=== PATIENT | female | born 1955 | race Two or more races ===

== ENCOUNTER 2021-02-20 13:45 | Inpatient (IN) ==
[2021-02-20 14:08] VITALS: BMI 24.7
--- NOTE | 2021-02-20 14:42 | DR.GENAD ---
HPI Time Seen Time Seen by Provider: 02/20/21 14:38 PCP Primary Care Physician: EVERTON Complaint/Symptoms Chief Complaint:: PT C/O ONE WEEK HISTORY OF GENERALIZED WEAKNESS, DIZZINESS, NAUSEA, VOMITING, DIARRHEA. COVID-19 Has patient experienced Coronavirus symptoms: Yes Coronavirus symptoms experienced: Fever, Coughing and Shortness of Breath Source History Provided: Patient Mode of Arrival Mode of Arrival: Ambulatory Timing Onset of Chief Complaint: 02/20/21 PMH PMH Past Medical History: No Past Surgical History: No Family History History of Family Medical Conditions: No Social History Does patient currently use any type of tobacco product: No Have you used tobacco products in the last 12 months: No Type of Tobacco Use: None Does any household member use tobacco: No Alcohol Use: None Do you use any recreational Drugs:: No Lives With: Alone Lives Where: Home Travel Risk Has patient experienced Coronavirus symptoms: Yes Coronavirus symptoms experienced: Fever, Coughing and Shortness of Breath Infectious screening In the last 2 months have you had wt loss of >10#?: NO Have you had fever, night sweats or hemotysis?: No Have you traveled outside the country in the last 6 months?: No Isolation: Droplet PE Vital Signs Vitals: Temperature 97.8 F Pulse Rate 99 Respiratory Rate 20 Blood Pressure 125/66 O2 Sat by Pulse Oximetry 85 ROR Labs Reviewed Result Diagrams: 02/20/21 14:54 02/20/21 14:54 Laboratory: WBC 7.3 X10^3/uL (3.6-10.0) 02/20/21 14:54 RBC 4.42 X10^6/uL (3.5-5.4) 02/20/21 14:54 Hgb 13.1 g/dL (12.0-16.0) 02/20/21 14:54 Hct 37.9 % (36.0-47.0) 02/20/21 14:54 MCV 85.7 fL (80.0-100.0) 02/20/21 14:54 MCH 29.7 pg (27.0-34.0) 02/20/21 14:54 MCHC 34.6 g/dL (33.0-35.0) 02/20/21 14:54 RDW 12.3 % (11.6-16.5) 02/20/21 14:54 Plt Count 289 X10^3/uL (150.0-450.0) 02/20/21 14:54 MPV 8.3 fL (7.4-11.0) 02/20/21 14:54 Neut % (Auto) 77.5 % (42.0-75.0) H 02/20/21 14:54 Lymph % (Auto) 18.0 % (21.0-51.0) L 02/20/21 14:54 [place] % (Auto) 3.6 % (0.0-13.0) 02/20/21 14:54 Eos % (Auto) 0.2 % (0.9-2.9) L 02/20/21 14:54 Baso % (Auto) 0.7 % (0.2-1.0) 02/20/21 14:54 Neut # (Auto) 5.6 x10^3/uL (2.2-4.8) H 02/20/21 14:54 Lymph # (Auto) 1.3 X10^3/uL (1.3-2.9) 02/20/21 14:54 [place] # (Auto) 0.3 x10^3/uL (0.3-0.8) 02/20/21 14:54 Eos # (Auto) 0.0 x10^3/uL (0.0-0.2) 02/20/21 14:54 Baso # (Auto) 0.0 X10^3/uL (0.0-0.1) 02/20/21 14:54 Absolute Nucleated RBC 0.1 /100WBC 02/20/21 14:54 Sample Site Lra 02/20/21 15:23 ABG pH 7.510 (7.35-7.45) H 02/20/21 15:23 ABG pCO2 32.0 mmHg (35.0-45.0) L 02/20/21 15:23 ABG pO2 51.0 mmHg (80.0-100.0) L 02/20/21 15:23 ABG HCO3 25.5 mmol/L (22-26) 02/20/21 15:23 ABG O2 Saturation 89.0 % (90-100) L 02/20/21 15:23 ABG Base Excess 2.9 mmol/L (-2.0-2.0) H 02/20/21 15:23 Sky Test Pos 02/20/21 15:23 A-a Gradient 59.0 mmHg 02/20/21 15:23 FiO2 21.0 02/20/21 15:23 Blood Gas Comments Pt judah well eb 02/20/21 15:23 Sodium 142 mmol/L (136-145) 02/20/21 14:54 Corrected Sodium 142 mmol/L (136-145) 02/20/21 14:54 Potassium 3.4 mmol/L (3.5-5.1) L 02/20/21 14:54 Chloride 106 mmol/L (98-107) 02/20/21 14:54 Carbon Dioxide 25.2 mmol/L (21-32) 02/20/21 14:54 BUN 12 mg/dL (7-18) 02/20/21 14:54 Creatinine 0.77 mg/dL (0.55-1.02) 02/20/21 14:54 Est GFR (MDRD) Af Amer > 60 (>60) 02/20/21 14:54 Est GFR (MDRD) Non-Af > 60 (>60) 02/20/21 14:54 Glucose 113 mg/dL (65-99) H 02/20/21 14:54 Calcium 8.0 mg/dL (8.5-10.1) L 02/20/21 14:54 Corrected Calcium 9.1 mg/dL (8.5-10.1) 02/20/21 14:54 Total Bilirubin 0.70 mg/dL (0.2-1.0) 02/20/21 14:54 AST 74 Units/L (15-37) H 02/20/21 14:54 ALT 59 Units/L (12-78) 02/20/21 14:54 Alkaline Phosphatase 111 Units/L (46-116) 02/20/21 14:54 B-Natriuretic Peptide 9.7 pg/mL (0-79) 02/20/21 14:54 Total Protein 7.5 g/dL (6.4-8.2) 02/20/21 14:54 Albumin 2.6 g/dL (3.4-5.0) L 02/20/21 14:54 Globulin 4.9 g/dL (2.5-4.5) H 02/20/21 14:54 Albumin/Globulin Ratio 0.5 Ratio (1.1-2.1) L 02/20/21 14:54 Amylase 65 Units/L (25-115) 02/20/21 14:54 Lipase 189 Units/L (73-393) 02/20/21 14:54 SARS-CoV-2 (PCR) Positive (NEGATIVE) A 02/20/21 15:05 Influenza Type A (PCR) Negative (NEGATIVE) 02/20/21 15:05 Influenza Type B (PCR) Negative (NEGATIVE) 02/20/21 15:05 RSV (PCR) Negative (NEGATIVE) 02/20/21 15:05 S. pyogenes (TEM-PCR) Not detected (NOT DETECT) 02/20/21 15:05 Opioid Opioid Risk Tool Age (Randolph box if 16-45): No History of Preadolescent Sexual Abuse: No Total: 0 Total Score Risk Category: Low Risk Copyright: Dez CALLES predicting aberrant behaviors Instructions Forms: Precautions for COVID19 Patient Portal Social Distancing
[2021-02-20] MEDS ORDERED: NS 1000 ML 1,000 ML ONE ×3 (14:59→16:33)
[2021-02-20 15:08] LABS: BASOPHILS % (AUTO) 0.7 % (0.2-1.0); EOSINOPHILS % (AUTO) 0.2 % (0.9-2.9); HEMATOCRIT 37.9 % (36.0-47.0); HEMOGLOBIN 13.1 g/dL (12.0-16.0); LYMPHOCYTES # (AUTO) 1.3 X10^3/uL (1.3-2.9); MEAN CORPUSCULAR HEMOGLOBIN 29.7 pg (27.0-34.0); MEAN CORPUSCULAR HGB CONC 34.6 g/dL (33.0-35.0); MEAN CORPUSCULAR VOLUME 85.7 fL (80.0-100.0); MEAN PLATELET VOLUME 8.3 fL (7.4-11.0); MONOCYTES # (AUTO) 0.3 x10^3/uL (0.3-0.8); MONOCYTES % (AUTO) 3.6 % (0.0-13.0); NEUTROPHILS # (AUTO) 5.6 x10^3/uL (2.2-4.8); NEUTROPHILS % (AUTO) 77.5 % (42.0-75.0); PLATELET COUNT 289 X10^3/uL (150.0-450.0); RED BLOOD COUNT 4.42 X10^6/uL (3.5-5.4); RED CELL DISTRIBUTION WIDTH 12.3 % (11.6-16.5); WHITE BLOOD COUNT 7.3 X10^3/uL (3.6-10.0)
[2021-02-20] MEDS: NS 1000 ML 1,000 ML IV SCH (15:10)
[2021-02-20 15:16] LABS: ALANINE AMINOTRANSFERASE 59 Units/L (12-78); ALBUMIN 2.6 g/dL (3.4-5.0); ALKALINE PHOSPHATASE 111 Units/L (46-116); AMYLASE 65 Units/L (25-115); ASPARTATE AMINO TRANSFERASE 74 Units/L (15-37); BLOOD UREA NITROGEN 12 mg/dL (7-18); CARBON DIOXIDE 25.2 mmol/L (21-32); CHLORIDE 106 mmol/L (98-107); COR CA(FOR HYPOALB) 9.1 mg/dL (8.5-10.1); COR NA(FOR HYPERGLY) 142 mmol/L (136-145); CREATININE 0.77 mg/dL (0.55-1.02); LIPASE 189 Units/L (73-393); SODIUM 142 mmol/L (136-145); TOTAL PROTEIN 7.5 g/dL (6.4-8.2); eGFR NON BLACK RACES > 60 (>60)
[2021-02-20 15:27] LABS: ABG ALLEN TEST POS; ABG BASE EXCESS 2.9 mmol/L (-2.0-2.0); ABG HCO3 25.5 mmol/L (22-26)
--- NOTE | 2021-02-20 15:30 | RAD ---
HISTORYPT C/O ONE WEEK HISTORY OF GENERALIZED WEAKNESS, DIZZINESS, NAUSEA, VOMITING, DIARRHEA.STUDYACUTE ABDOMEN SERIESCOMPARISONNone availableTECHNIQUEAP supine and upright abdominal radiographs with chest radiography, 3 images.FINDINGSGas throughout nondistended small and large bowel.No significant stool burden visualized.No gross free air.No abnormal calcifications.No acute osseous abnormality.Diffuse bilateral airspace opacities.No cardiomegaly.No pneumothorax.No pleural effusion.IMPRESSION1. Diffuse bilateral airspace opacities is concerning for multifocal pneumonia or the sequela of atypical/viral infectious process.2. No acute intra-abdominal abnormality identified.Electronically signed by: Girish Acosta (Feb 20, 2021 15:27:04)
[2021-02-20 15:41] LABS: STREP A BY PCR NOT DETECTED (NOT DETECT)
[2021-02-20] MEDS ORDERED: DECADRON INJ IV ONE (16:13)
[2021-02-20] MEDS ORDERED: ZOSYN VIAL 3.375 GRAMS 3.375 G in NS 100 ML IV + SPIKE MINIBAG* 100 ML IV ONE (16:14)
[2021-02-20] MEDS ORDERED: NS 100 ML IV + SPIKE MINIBAG* 100 ML IV ONE (16:29)
[2021-02-20] MEDS ORDERED: DECADRON INJ ONE (16:29)
[2021-02-20] MEDS ORDERED: ZOSYN VIAL 3.375 GRAMS IV ONE (16:29)
[2021-02-20] MEDS ORDERED: TORADOL 30 MG VIAL IVP ONE (17:53)
[2021-02-20] MEDS ORDERED: TORADOL 30 MG VIAL ONE (17:54)
[2021-02-20] MEDS ORDERED: TYLENOL 325 MG TAB PO ONE ×2 (18:08→18:09)
[2021-02-20] MEDS ORDERED: ZOSYN VIAL 3.375 GRAMS 3.375 G in NS 100 ML IV + SPIKE MINIBAG* 100 ML IV SCH (18:09)
[2021-02-20] MEDS ORDERED: TUSSIONEX PENNKINETIC SUSP PO PRN (18:09)
[2021-02-20] MEDS ORDERED: SOLU-Medrol 125 MG VIAL IVP ONE (19:47)
[2021-02-20] MEDS ORDERED: REMDESIVIR 200 MG in NS 250 ML IV 250 ML IV ONE (19:47)
[2021-02-20] MEDS ORDERED: BENADRYL INJ 50 MG VIAL IV ONE (19:47)
[2021-02-20] MEDS ORDERED: BENADRYL INJ 50 MG VIAL ONE (20:08)
[2021-02-20] MEDS ORDERED: SOLU-Medrol 125 MG VIAL ONE (20:08)
[2021-02-20 20:12] LABS: CKMB % 1.6 % (<4); CREATINE KINASE 61 Units/L (26-192); CREATINE KINASE MB < 1.0 ng/mL (0-4.0); TROPONIN I 0.04 ng/mL (0-1.5)
[2021-02-20] MEDS: PULMICORT NEB TX 0.5 MG NEB SCH (21:05)
[2021-02-20] MEDS ORDERED: NS 100 ML IV 100 ML ONE (21:06)
[2021-02-20] MEDS: PEPCID TAB 40 MG PO SCH (22:00)
--- NOTE | 2021-02-20 22:12 | CT ---
HISTORYpneumonia, hypoxia, covid+STUDYCTA CHESTCOMPARISONNone availableTECHNIQUEAxial CT images of the chest were obtained after the administration of 75 mL Omnipaque 350 IV contrast utilizing a CTA protocol. 3D MIPS were performed and reviewed for further evaluation.Radiation dose: 539.80 mGy-cm total DLPFINDINGSNo significant pericardial effusion.No mediastinal or hilar lymphadenopathy.Aorta is normal in caliber without dissection.Pulmonary arteries are normal in caliber without filling defects to suggest a pulmonary embolus.Nonspecific esophageal wall thickening below the level of the joaquín.Airways are widely patent.Thyroid appears normal.Small right and trace left pleural effusions.Diffuse bilateral airspace opacities throughout the majority of the lung parenchyma.No pneumothorax.No concerning lung parenchymal lesion identified.Imaged portion of the upper abdomen is unremarkable.No acute osseous abnormality.Multilevel mild degenerative disc disease without vertebral body height loss.IMPRESSION1. Diffuse bilateral airspace opacities throughout the majority of the lung parenchyma. Findings are consistent with the given history of a COVID-19 respiratory infection.2. Small right and trace left pleural effusions; may represent cardiogenic edema.3. Nonspecific esophageal wall thickening below the level of joaquín correlate for symptoms esophagitis.Electronically signed by: Girish Acosta (Feb 20, 2021 22:08:43)
[2021-02-20] MEDS: LOVENOX INJ 30 MG SYR SC SCH (22:20)
[2021-02-20] MEDS: ROBITUSSIN DM PO SCH (22:23)
[2021-02-21] MEDS ORDERED: ZOSYN VIAL 3.375 GRAMS IV ONE ×2 (00:52→10:18)
[2021-02-21] MEDS ORDERED: NS 100 ML IV + SPIKE MINIBAG* 100 ML IV ONE ×2 (00:53→10:20)
[2021-02-21] MEDS: ZOSYN VIAL 3.375 GRAMS 3.375 G in NS 100 ML IV + SPIKE MINIBAG* 100 ML IV SCH ×3 (00:57→17:25)
[2021-02-21] MEDS: ROBITUSSIN DM PO SCH ×5 (02:04→21:12)
[2021-02-21] MEDS: NS 1000 ML 1,000 ML IV SCH ×3 (02:25→18:37)
[2021-02-21 04:44] LABS: BASOPHILS % (AUTO) 0.1 % (0.2-1.0); HEMATOCRIT 38.3 % (36.0-47.0); HEMOGLOBIN 13.2 g/dL (12.0-16.0); LYMPHOCYTES # (AUTO) 0.9 X10^3/uL (1.3-2.9); LYMPHOCYTES % (AUTO) 14.5 % (21.0-51.0); MEAN CORPUSCULAR HEMOGLOBIN 29.6 pg (27.0-34.0); MEAN CORPUSCULAR HGB CONC 34.4 g/dL (33.0-35.0); MEAN CORPUSCULAR VOLUME 85.9 fL (80.0-100.0); MEAN PLATELET VOLUME 8.3 fL (7.4-11.0); MONOCYTES # (AUTO) 0.2 x10^3/uL (0.3-0.8); MONOCYTES % (AUTO) 2.7 % (0.0-13.0); NEUTROPHILS % (AUTO) 82.7 % (42.0-75.0); PLATELET COUNT 316 X10^3/uL (150.0-450.0); RED BLOOD COUNT 4.46 X10^6/uL (3.5-5.4); RED CELL DISTRIBUTION WIDTH 12.3 % (11.6-16.5); WHITE BLOOD COUNT 6.1 X10^3/uL (3.6-10.0)
[2021-02-21 04:58] LABS: ALANINE AMINOTRANSFERASE 59 Units/L (12-78); ALBUMIN 2.1 g/dL (3.4-5.0); ALKALINE PHOSPHATASE 112 Units/L (46-116); ASPARTATE AMINO TRANSFERASE 68 Units/L (15-37); BLOOD UREA NITROGEN 15 mg/dL (7-18); CALCIUM 7.7 mg/dL (8.5-10.1); CARBON DIOXIDE 24.4 mmol/L (21-32); CHLORIDE 111 mmol/L (98-107); COR CA(FOR HYPOALB) 9.2 mg/dL (8.5-10.1); COR NA(FOR HYPERGLY) 148 mmol/L (136-145); CREATININE 0.79 mg/dL (0.55-1.02); SODIUM 146 mmol/L (136-145); TOTAL PROTEIN 6.7 g/dL (6.4-8.2); eGFR NON BLACK RACES > 60 (>60)
[2021-02-21] MEDS: SOLU-Medrol 40 MG VIAL IVP SCH ×3 (05:49→21:08)
[2021-02-21 07:53] LABS: CKMB % 1.5 % (<4); CREATINE KINASE 69 Units/L (26-192); CREATINE KINASE MB < 1.0 ng/mL (0-4.0); TROPONIN I 0.02 ng/mL (0-1.5)
[2021-02-21] MEDS ORDERED: NS 1/2 1000 ML IV 1,000 ML IV ONE (08:30)
[2021-02-21] MEDS ORDERED: LOVENOX INJ 30 MG SYR SC ONE (08:50)
[2021-02-21] MEDS ORDERED: PEPCID TAB 40 MG ONE (08:50)
[2021-02-21] MEDS ORDERED: TRICOR TAB 160 MG ONE (08:50)
[2021-02-21] MEDS ORDERED: VITAMIN D3 125 mcg (5,000 UNITS) ONE (09:10)
[2021-02-21] MEDS ORDERED: NS 50 ML IV 50 ML IV ONE (09:10)
[2021-02-21] MEDS ORDERED: ASCORBIC ACID INJ MULTI-DOSE VIAL IV ONE (09:11)
[2021-02-21] MEDS ORDERED: ZINC SULFATE ONE (09:12)
[2021-02-21] MEDS: ASCORBIC ACID INJ MULTI-DOSE VIAL 1,500 MG in NS 50 ML IV 50 ML IV SCH ×4 (09:15→21:08)
[2021-02-21] MEDS ORDERED: NS 1000 ML 1,000 ML ONE (09:15)
[2021-02-21] MEDS: PEPCID TAB 40 MG PO SCH ×2 (09:23→21:10)
[2021-02-21] MEDS: ZINC SULFATE PO SCH (09:23)
[2021-02-21] MEDS: VITAMIN A PO SCH (09:24)
[2021-02-21] MEDS: TRICOR TAB 160 MG PO SCH (09:24)
[2021-02-21] MEDS: VITAMIN D3 125 mcg (5,000 UNITS) PO SCH (09:24)
[2021-02-21] MEDS: LOVENOX INJ 30 MG SYR SC SCH ×2 (09:25→21:09)
[2021-02-21] MEDS: VSL#3 PO SCH (10:05)
[2021-02-21] MEDS: PULMICORT NEB TX 0.5 MG NEB SCH ×2 (10:19→20:35)
[2021-02-21] MEDS ORDERED: REMDESIVIR IV ONE (10:59)
[2021-02-21] MEDS ORDERED: ROBITUSSIN DM ONE ×2 (10:59→13:28)
[2021-02-21] MEDS ORDERED: NS 250 ML IV 250 ML IV ONE (10:59)
[2021-02-21] MEDS: REMDESIVIR 100 MG in NS 250 ML IV 250 ML IV SCH (11:00)
[2021-02-21] MEDS ORDERED: ZITHROMAX TAB 250 MG PO ONE (11:34)
[2021-02-21] MEDS ORDERED: ACTEMRA 400 MG in NS 100 ML IV 80 ML IV SCH (11:49)
[2021-02-21] MEDS: ZITHROMAX TAB 250 MG PO SCH (12:00)
[2021-02-21 12:29] LABS: CKMB % 1.9 % (<4); CREATINE KINASE 70 Units/L (26-192); CREATINE KINASE MB 1.3 ng/mL (0-4.0); TROPONIN I < 0.02 ng/mL (0-1.5)
[2021-02-21 12:32] LABS: HEMOGLOBIN A1C 6.7 %
--- NOTE | 2021-02-21 13:05 | DR.H&P ---
H&P History & Physical for Day of: H&P Date: 02/21/21 Chief Complaint Chief Complaint: nausea, vomiting, cough Allergies Allergies Allergy/AdvReac Type Severity Reaction Status Date / Time No Known Drug Allergies Allergy Verified 02/20/21 14:09 History of Present Illness History of Present Illness: Ms Lang is a 65y.o female with no pertinent past medical hx presented with generalized weakness, nausea, vomiting and cough. Her Sx started Sunday and she went to ER in [place] Sunday. She was given some medicines and discharged but continued to get worse so she came here. She was having worsening SOB and congestion. She also has decreased oral intake. Denies prev hx of covid infection, unvaccinated. Patient is currently on HHFNC FiO2 90% and appears in no respiratory distress. Hx was obtained from the family member in the room. ER work up Labs: WBC 6.1 Hgb 13.2 Na: 146 K: 3.6 BUN/Cr: 15/0.79 trop 0.04 0.02 D-dimer 0.91 ABG 7.51/32/51/25 89% RA - COVID-19 + CTA: no PE, diffuse bilateral opacities Patient was started on IV antibiotics, solumedrol and Remdesivir. Plan: admit with covid-19 protocol. Wean O2 as tolerated to keep sats > 92%. Will give one dose Actemra as soon as it's available. Continue IV zosyn, add azithromycin. Continue Remdesivir and Solumedrol. Continue nebs, pulmicort and IS. Trend cardiac enzymes. PT/OT as tolerated. Anti-emetics prn. Continue gentle hydration. Add vitamin support. Monitor AM labs and imaging. Discussed patient's treatment plan with family. Time spent for clinical assessment, reviewing labs/imaging, physical exam, decision making and documentation greater than 75 mins. Past Medical History Past Medical History: Family History Family Medical History: Diabetes Mellitus Social History Does patient currently use any type of tobacco product: No Have you used tobacco products in the last 12 months: No Type of Tobacco Use: None Does any household member use tobacco: No Alcohol Use: None Drug Use: None Prescription drug monitoring program results: PDMP reviewed and no concerns identified Medications Home Medications: No Known Drug Allergies Allergy (Verified 02/20/21 14:09) CONTINUE taking the following medications albuterol sulfate 90 mcg INHALATION Q4HR PRN 02/20/21 [History] ascorbic acid (vitamin C) 500 mg PO BID 02/20/21 [History] wvqgpyavphwmzax-moxvgqejb-DC 5 ml PO Q6HR PRN 02/20/21 [History] cetirizine 10 mg PO DAILYHS 02/20/21 [History] cholecalciferol (vitamin D3) 125 mcg PO DAILY 02/20/21 [History] zinc sulfate 50 mg PO BID 02/20/21 [History] Labs Result Diagrams: 02/21/21 04:16 02/21/21 04:16 Labs: Laboratory WBC 6.1 X10^3/uL (3.6-10.0) 02/21/21 04:16 RBC 4.46 X10^6/uL (3.5-5.4) 02/21/21 04:16 Hgb 13.2 g/dL (12.0-16.0) 02/21/21 04:16 Hct 38.3 % (36.0-47.0) 02/21/21 04:16 MCV 85.9 fL (80.0-100.0) 02/21/21 04:16 MCH 29.6 pg (27.0-34.0) 02/21/21 04:16 MCHC 34.4 g/dL (33.0-35.0) 02/21/21 04:16 RDW 12.3 % (11.6-16.5) 02/21/21 04:16 Plt Count 316 X10^3/uL (150.0-450.0) 02/21/21 04:16 MPV 8.3 fL (7.4-11.0) 02/21/21 04:16 Neut % (Auto) 82.7 % (42.0-75.0) H 02/21/21 04:16 Lymph % (Auto) 14.5 % (21.0-51.0) L 02/21/21 04:16 [place] % (Auto) 2.7 % (0.0-13.0) 02/21/21 04:16 Eos % (Auto) 0.0 % (0.9-2.9) L 02/21/21 04:16 Baso % (Auto) 0.1 % (0.2-1.0) L 02/21/21 04:16 Neut # (Auto) 5.0 x10^3/uL (2.2-4.8) H 02/21/21 04:16 Lymph # (Auto) 0.9 X10^3/uL (1.3-2.9) L 02/21/21 04:16 [place] # (Auto) 0.2 x10^3/uL (0.3-0.8) L 02/21/21 04:16 Eos # (Auto) 0.0 x10^3/uL (0.0-0.2) 02/21/21 04:16 Baso # (Auto) 0.0 X10^3/uL (0.0-0.1) 02/21/21 04:16 Absolute Nucleated RBC 0.1 /100WBC 02/21/21 04:16 D-Dimer 0.91 ug/ml (0.0-0.57) H* 02/20/21 20:00 Sample Site Lra 02/20/21 15:23 ABG pH 7.510 (7.35-7.45) H 02/20/21 15:23 ABG pCO2 32.0 mmHg (35.0-45.0) L 02/20/21 15:23 ABG pO2 51.0 mmHg (80.0-100.0) L 02/20/21 15:23 ABG HCO3 25.5 mmol/L (22-26) 02/20/21 15:23 ABG O2 Saturation 89.0 % (90-100) L 02/20/21 15:23 ABG Base Excess 2.9 mmol/L (-2.0-2.0) H 02/20/21 15:23 Sky Test Pos 02/20/21 15:23 A-a Gradient 59.0 mmHg 02/20/21 15:23 FiO2 21.0 02/20/21 15:23 Blood Gas Comments Pt judah well eb 02/20/21 15:23 Sodium 146 mmol/L (136-145) H 02/21/21 04:16 Corrected Sodium 148 mmol/L (136-145) H 02/21/21 04:16 Potassium 3.6 mmol/L (3.5-5.1) 02/21/21 04:16 Chloride 111 mmol/L (98-107) H 02/21/21 04:16 Carbon Dioxide 24.4 mmol/L (21-32) 02/21/21 04:16 BUN 15 mg/dL (7-18) 02/21/21 04:16 Creatinine 0.79 mg/dL (0.55-1.02) 02/21/21 04:16 Est GFR (MDRD) Af Amer > 60 (>60) 02/21/21 04:16 Est GFR (MDRD) Non-Af > 60 (>60) 02/21/21 04:16 Glucose 177 mg/dL (65-99) H 02/21/21 04:16 Hemoglobin A1c 6.7 % 02/21/21 04:16 Calcium 7.7 mg/dL (8.5-10.1) L 02/21/21 04:16 Corrected Calcium 9.2 mg/dL (8.5-10.1) 02/21/21 04:16 Total Bilirubin 0.50 mg/dL (0.2-1.0) 02/21/21 04:16 AST 68 Units/L (15-37) H 02/21/21 04:16 ALT 59 Units/L (12-78) 02/21/21 04:16 Alkaline Phosphatase 112 Units/L (46-116) 02/21/21 04:16 Creatine Kinase 69 Units/L (26-192) 02/21/21 04:16 Creatine Kinase 70 Units/L (26-192) 02/21/21 04:16 CK-MB (CK-2) 1.3 ng/mL (0-4.0) 02/21/21 04:16 CK-MB (CK-2) < 1.0 ng/mL (0-4.0) 02/21/21 04:16 CK/CKMB % Calc 1.5 % (<4) 02/21/21 04:16 CK/CKMB % Calc 1.9 % (<4) 02/21/21 04:16 Troponin I 0.02 ng/mL (0-1.5) 02/21/21 04:16 Troponin I < 0.02 ng/mL (0-1.5) 02/21/21 04:16 B-Natriuretic Peptide 9.7 pg/mL (0-79) 02/20/21 14:54 Total Protein 6.7 g/dL (6.4-8.2) 02/21/21 04:16 Albumin 2.1 g/dL (3.4-5.0) L 02/21/21 04:16 Globulin 4.6 g/dL (2.5-4.5) H 02/21/21 04:16 Albumin/Globulin Ratio 0.5 Ratio (1.1-2.1) L 02/21/21 04:16 Amylase 65 Units/L (25-115) 02/20/21 14:54 Lipase 189 Units/L (73-393) 02/20/21 14:54 SARS-CoV-2 (PCR) Positive (NEGATIVE) A 02/20/21 15:05 Influenza Type A (PCR) Negative (NEGATIVE) 02/20/21 15:05 Influenza Type B (PCR) Negative (NEGATIVE) 02/20/21 15:05 RSV (PCR) Negative (NEGATIVE) 02/20/21 15:05 S. pyogenes (TEM-PCR) Not detected (NOT DETECT) 02/20/21 15:05 Review of Systems Constitutional: Fever, Weakness and Malaise Eyes: No Symptoms Reported ENT: No Symptoms Reported Respiratory: Cough, Shortness of Breath and SOB with Excertion Cardiovascular: No Symptoms Reported Gastrointestinal: Nausea and Vomiting Genitourinary: No Symptoms Reported Musculoskeletal: No Symptoms Reported Skin: No Symptoms Reported Neurological: No Symptoms Reported Physical Exam Vital Signs: Temperature 97.7 F Pulse Rate [Bilateral] 84 Pulse Rate 98 Respiratory Rate 24 Blood Pressure [Left Arm] 143/77 Blood Pressure 125/66 O2 Sat by Pulse Oximetry 96 Oriented: Normal Eyes: Normal Ear: Normal Nose: Normal Throat: Normal Respiratory: Rhonchi Throughout and Wheezes Throughout Cardiovascular: Normal Auscultation: Bowel Sounds: Normal Palpation: Normal Tenderness: Normal Skin: Decreased Turgur Musculoskeletal: Normal Psychiatric: Normal Mood Description: Calm and Appropriate Affect: Normal Speech Pattern: Clear and Appropriate Assessment/Plan (1) Pneumonia due to COVID-19 virus: Status: Acute (2) Acute respiratory failure with hypoxia: Status: Acute Review H&P Reviewed: Yes Patient was examined?: Yes
[2021-02-21] MEDS ORDERED: SOLU-Medrol 40 MG VIAL ONE (13:11)
[2021-02-22] MEDS: ZOSYN VIAL 3.375 GRAMS 3.375 G in NS 100 ML IV + SPIKE MINIBAG* 100 ML IV SCH ×4 (00:02→23:34)
[2021-02-22] MEDS: ASCORBIC ACID INJ MULTI-DOSE VIAL 1,500 MG in NS 50 ML IV 50 ML IV SCH ×4 (02:06→21:42)
[2021-02-22] MEDS: NS 1000 ML 1,000 ML IV SCH ×2 (02:06→06:28)
[2021-02-22] MEDS: SOLU-Medrol 40 MG VIAL IVP SCH ×3 (05:08→21:43)
[2021-02-22 05:11] LABS: BASOPHILS % (AUTO) 0.2 % (0.2-1.0); HEMATOCRIT 36.8 % (36.0-47.0); HEMOGLOBIN 12.7 g/dL (12.0-16.0); LYMPHOCYTES # (AUTO) 1.4 X10^3/uL (1.3-2.9); LYMPHOCYTES % (AUTO) 12.4 % (21.0-51.0); MEAN CORPUSCULAR HEMOGLOBIN 29.4 pg (27.0-34.0); MEAN CORPUSCULAR HGB CONC 34.6 g/dL (33.0-35.0); MEAN PLATELET VOLUME 8.9 fL (7.4-11.0); MONOCYTES # (AUTO) 0.6 x10^3/uL (0.3-0.8); MONOCYTES % (AUTO) 4.8 % (0.0-13.0); NEUTROPHILS # (AUTO) 9.5 x10^3/uL (2.2-4.8); NEUTROPHILS % (AUTO) 82.6 % (42.0-75.0); PLATELET COUNT 399 X10^3/uL (150.0-450.0); RED BLOOD COUNT 4.33 X10^6/uL (3.5-5.4); RED CELL DISTRIBUTION WIDTH 12.5 % (11.6-16.5); WHITE BLOOD COUNT 11.5 X10^3/uL (3.6-10.0)
[2021-02-22 05:34] LABS: ALANINE AMINOTRANSFERASE 73 Units/L (12-78); ALBUMIN 2.1 g/dL (3.4-5.0); ALKALINE PHOSPHATASE 109 Units/L (46-116); ASPARTATE AMINO TRANSFERASE 61 Units/L (15-37); BLOOD UREA NITROGEN 17 mg/dL (7-18); CALCIUM 7.8 mg/dL (8.5-10.1); CARBON DIOXIDE 24.2 mmol/L (21-32); COR CA(FOR HYPOALB) 9.3 mg/dL (8.5-10.1); COR NA(FOR HYPERGLY) 153 mmol/L (136-145); CREATININE 0.73 mg/dL (0.55-1.02); SODIUM 149 mmol/L (136-145); TOTAL PROTEIN 6.4 g/dL (6.4-8.2); eGFR NON BLACK RACES > 60 (>60)
[2021-02-22 05:50] LABS: CHLORIDE 115 mmol/L (98-107)
[2021-02-22] MEDS: ZINC SULFATE PO SCH (08:14)
[2021-02-22] MEDS: VITAMIN D3 125 mcg (5,000 UNITS) PO SCH (08:14)
[2021-02-22] MEDS: ROBITUSSIN DM PO SCH ×4 (08:14→21:43)
[2021-02-22] MEDS: ZITHROMAX TAB 250 MG PO SCH (08:14)
[2021-02-22] MEDS: VSL#3 PO SCH (08:14)
[2021-02-22] MEDS: TRICOR TAB 160 MG PO SCH (08:14)
[2021-02-22] MEDS: VITAMIN A PO SCH (08:14)
[2021-02-22] MEDS: PEPCID TAB 40 MG PO SCH ×2 (08:14→21:43)
[2021-02-22] MEDS: LOVENOX INJ 30 MG SYR SC SCH ×2 (08:15→21:44)
--- NOTE | 2021-02-22 09:22 | PCM.PROG ---
Progress Note Progress Note for Day of Date of Exam: 02/22/21 Subjective Subjective: Patient seen at bedside, no acute events overnight. She remains on HHFNC at FiO2 90% with sats between 88-90. Patient does not appear to be in any respiratory distress. Son present at bedside. He reports she is feeling better. She has eating a little bit. She has been afebrile. Labs: WBC 11.5 Hgb 12.7 Na: 153 K: 3.6 Cl 115 BUN/Cr: 17/0.73 Glucose 264 A1C 6.7% CRP 66.30 Trop x 3 (-) Plan: Wean O2 as tolerated to keep sats > 90%, continue IV antibiotics, Remdesivir and Solumedrol. Repeat CXR today. Actemra ordered but none in stock right now, will give a dose as soon as it's available. Will add SSI for hyperglycemia. Continue vitamin support. Will switch to D5. Discussed plan with son at bedside, verbalized understanding. Monitor AM labs and imaging. Patient remains in a critical condition. Time spent for clinical assessment, reviewing labs/imaging, physical exam, d ecision making and documentation greater than 75 mins. Past Medical Family Social History Past Med/Fam/Surg Hx: No changes since H&P Allergies: Allergies No Known Drug Allergies Allergy (Verified 02/20/21 14:09) Review of Systems ROS: No change since H&P Vital Signs and I&O's Vital Signs: Temperature 98.3 F Pulse Rate [Bilateral] 74 Pulse Rate 87 Respiratory Rate 25 Blood Pressure [Left Arm] 150/79 Blood Pressure 125/66 O2 Sat by Pulse Oximetry 94 Intake and Output: Intake & Output 02/19/21 02/20/21 02/21/21 02/22/21 23:59 23:59 23:59 23:59 Intake Total 450 / 450 2514 / 2514 754 / 754 Balance 450 / 450 2514 / 2514 754 / 754 Physical Exam Oriented: Normal Eyes: Normal Ear: Normal Nose: Normal Throat: Normal Respiratory: Generalized, Wheezes and Rhonchi Cardiovascular: Normal Auscultation: Bowel Sounds: Normal Tenderness: Normal Skin: Decreased Turgur Musculoskeletal: Normal Psychiatric: Normal Mood Description: Calm and Appropriate Affect: Normal Speech Pattern: Clear and Appropriate Laboratory and Diagnostics Result Diagrams: 02/22/21 04:05 02/22/21 04:05 Labs: Laboratory WBC 11.5 X10^3/uL (3.6-10.0) H 02/22/21 04:05 RBC 4.33 X10^6/uL (3.5-5.4) 02/22/21 04:05 Hgb 12.7 g/dL (12.0-16.0) 02/22/21 04:05 Hct 36.8 % (36.0-47.0) 02/22/21 04:05 MCV 85.0 fL (80.0-100.0) 02/22/21 04:05 MCH 29.4 pg (27.0-34.0) 02/22/21 04:05 MCHC 34.6 g/dL (33.0-35.0) 02/22/21 04:05 RDW 12.5 % (11.6-16.5) 02/22/21 04:05 Plt Count 399 X10^3/uL (150.0-450.0) 02/22/21 04:05 MPV 8.9 fL (7.4-11.0) 02/22/21 04:05 Neut % (Auto) 82.6 % (42.0-75.0) H 02/22/21 04:05 Lymph % (Auto) 12.4 % (21.0-51.0) L 02/22/21 04:05 [place] % (Auto) 4.8 % (0.0-13.0) 02/22/21 04:05 Eos % (Auto) 0.0 % (0.9-2.9) L 02/22/21 04:05 Baso % (Auto) 0.2 % (0.2-1.0) 02/22/21 04:05 Neut # (Auto) 9.5 x10^3/uL (2.2-4.8) H 02/22/21 04:05 Lymph # (Auto) 1.4 X10^3/uL (1.3-2.9) 02/22/21 04:05 [place] # (Auto) 0.6 x10^3/uL (0.3-0.8) 02/22/21 04:05 Eos # (Auto) 0.0 x10^3/uL (0.0-0.2) 02/22/21 04:05 Baso # (Auto) 0.0 X10^3/uL (0.0-0.1) 02/22/21 04:05 Absolute Nucleated RBC 0.0 /100WBC 02/22/21 04:05 D-Dimer 0.91 ug/ml (0.0-0.57) H* 02/20/21 20:00 Sample Site Lra 02/20/21 15:23 ABG pH 7.510 (7.35-7.45) H 02/20/21 15:23 ABG pCO2 32.0 mmHg (35.0-45.0) L 02/20/21 15:23 ABG pO2 51.0 mmHg (80.0-100.0) L 02/20/21 15:23 ABG HCO3 25.5 mmol/L (22-26) 02/20/21 15:23 ABG O2 Saturation 89.0 % (90-100) L 02/20/21 15:23 ABG Base Excess 2.9 mmol/L (-2.0-2.0) H 02/20/21 15:23 Sky Test Pos 02/20/21 15:23 A-a Gradient 59.0 mmHg 02/20/21 15:23 FiO2 21.0 02/20/21 15:23 Blood Gas Comments Pt judah well eb 02/20/21 15:23 Sodium 149 mmol/L (136-145) H 02/22/21 04:05 Corrected Sodium 153 mmol/L (136-145) H 02/22/21 04:05 Potassium 3.6 mmol/L (3.5-5.1) 02/22/21 04:05 Chloride 115 mmol/L (98-107) H* 02/22/21 04:05 Carbon Dioxide 24.2 mmol/L (21-32) 02/22/21 04:05 BUN 17 mg/dL (7-18) 02/22/21 04:05 Creatinine 0.73 mg/dL (0.55-1.02) 02/22/21 04:05 Est GFR (MDRD) Af Amer > 60 (>60) 02/22/21 04:05 Est GFR (MDRD) Non-Af > 60 (>60) 02/22/21 04:05 Glucose 264 mg/dL (65-99) H 02/22/21 04:05 Hemoglobin A1c 6.7 % 02/21/21 04:16 Calcium 7.8 mg/dL (8.5-10.1) L 02/22/21 04:05 Corrected Calcium 9.3 mg/dL (8.5-10.1) 02/22/21 04:05 Total Bilirubin 0.40 mg/dL (0.2-1.0) 02/22/21 04:05 AST 61 Units/L (15-37) H 02/22/21 04:05 ALT 73 Units/L (12-78) 02/22/21 04:05 Alkaline Phosphatase 109 Units/L (46-116) 02/22/21 04:05 Creatine Kinase 69 Units/L (26-192) 02/21/21 04:16 Creatine Kinase 70 Units/L (26-192) 02/21/21 04:16 CK-MB (CK-2) 1.3 ng/mL (0-4.0) 02/21/21 04:16 CK-MB (CK-2) < 1.0 ng/mL (0-4.0) 02/21/21 04:16 CK/CKMB % Calc 1.5 % (<4) 02/21/21 04:16 CK/CKMB % Calc 1.9 % (<4) 02/21/21 04:16 Troponin I 0.02 ng/mL (0-1.5) 02/21/21 04:16 Troponin I < 0.02 ng/mL (0-1.5) 02/21/21 04:16 C-Reactive Protein 66.30 mg/L (0-3.0) H 02/22/21 04:05 B-Natriuretic Peptide 9.7 pg/mL (0-79) 02/20/21 14:54 Total Protein 6.4 g/dL (6.4-8.2) 02/22/21 04:05 Albumin 2.1 g/dL (3.4-5.0) L 02/22/21 04:05 Globulin 4.3 g/dL (2.5-4.5) 02/22/21 04:05 Albumin/Globulin Ratio 0.5 Ratio (1.1-2.1) L 02/22/21 04:05 Amylase 65 Units/L (25-115) 02/20/21 14:54 Lipase 189 Units/L (73-393) 02/20/21 14:54 SARS-CoV-2 (PCR) Positive (NEGATIVE) A 02/20/21 15:05 Influenza Type A (PCR) Negative (NEGATIVE) 02/20/21 15:05 Influenza Type B (PCR) Negative (NEGATIVE) 02/20/21 15:05 RSV (PCR) Negative (NEGATIVE) 02/20/21 15:05 S. pyogenes (TEM-PCR) Not detected (NOT DETECT) 02/20/21 15:05 Plan (1) Pneumonia due to COVID-19 virus: Status: Acute (2) Acute respiratory failure with hypoxia: Status: Acute (3) Type 2 diabetes mellitus: Status: Acute Qualifiers: Diabetes mellitus skilled nursing insulin use: without skilled nursing use Diabetes mellitus complication status: without complication Qualified Code(s): E11.9 - Type 2 diabetes mellitus without complications
[2021-02-22] MEDS: PULMICORT NEB TX 0.5 MG NEB SCH ×2 (09:38→20:50)
[2021-02-22] MEDS: MUCOMYST 20% 200 MG/ML NEB SCH ×2 (09:38→20:50)
[2021-02-22] MEDS: D5W 1000 ML IV 1,000 ML IV SCH ×2 (09:47→23:34)
--- NOTE | 2021-02-22 09:56 | RAD ---
HISTORYCOVID HYPOXIASTUDYCHEST x-ray, 1 VIEWCOMPARISONX-ray 02/20/2021FINDINGSProminent bilateral COVID-19 pneumonia has likely worsened since prior study. No pneumothorax or pleural effusion is seen. Borderline cardiomegaly is seen.IMPRESSIONWorsening prominent bilateral COVID-19 pneumonia.Electronically signed by: Chance Mcgee (Feb 22, 2021 09:48:22)
[2021-02-22] MEDS: REMDESIVIR 100 MG in NS 250 ML IV 250 ML IV SCH (11:00)
[2021-02-22] MEDS: HumuLIN R SC PRN ×3 (12:02→21:45)
[2021-02-23] MEDS: ASCORBIC ACID INJ MULTI-DOSE VIAL 1,500 MG in NS 50 ML IV 50 ML IV SCH ×4 (03:08→21:11)
[2021-02-23] MEDS: SOLU-Medrol 40 MG VIAL IVP SCH ×3 (05:14→21:13)
[2021-02-23] MEDS: D5W 1000 ML IV 1,000 ML IV SCH ×2 (05:45→20:45)
[2021-02-23] MEDS: HumuLIN R SC PRN ×3 (05:46→21:34)
[2021-02-23 06:21] LABS: BASOPHILS % (AUTO) 0.3 % (0.2-1.0); HEMATOCRIT 36.2 % (36.0-47.0); HEMOGLOBIN 12.4 g/dL (12.0-16.0); LYMPHOCYTES # (AUTO) 1.1 X10^3/uL (1.3-2.9); LYMPHOCYTES % (AUTO) 8.8 % (21.0-51.0); MEAN CORPUSCULAR HEMOGLOBIN 30.3 pg (27.0-34.0); MEAN CORPUSCULAR HGB CONC 34.4 g/dL (33.0-35.0); MEAN CORPUSCULAR VOLUME 88.2 fL (80.0-100.0); MEAN PLATELET VOLUME 8.9 fL (7.4-11.0); MONOCYTES # (AUTO) 0.6 x10^3/uL (0.3-0.8); NEUTROPHILS # (AUTO) 10.7 x10^3/uL (2.2-4.8); NEUTROPHILS % (AUTO) 85.9 % (42.0-75.0); PLATELET COUNT 409 X10^3/uL (150.0-450.0); RED CELL DISTRIBUTION WIDTH 12.5 % (11.6-16.5); WHITE BLOOD COUNT 12.4 X10^3/uL (3.6-10.0)
[2021-02-23 06:42] LABS: ALANINE AMINOTRANSFERASE 56 Units/L (12-78); ALBUMIN 2.1 g/dL (3.4-5.0); ALKALINE PHOSPHATASE 104 Units/L (46-116); ASPARTATE AMINO TRANSFERASE 42 Units/L (15-37); BLOOD UREA NITROGEN 19 mg/dL (7-18); CALCIUM 7.9 mg/dL (8.5-10.1); CARBON DIOXIDE 25.6 mmol/L (21-32); CHLORIDE 114 mmol/L (98-107); COR CA(FOR HYPOALB) 9.4 mg/dL (8.5-10.1); COR NA(FOR HYPERGLY) 150 mmol/L (136-145); CREATININE 0.75 mg/dL (0.55-1.02); SODIUM 148 mmol/L (136-145); TOTAL PROTEIN 6.1 g/dL (6.4-8.2); eGFR NON BLACK RACES > 60 (>60)
[2021-02-23] MEDS: ZOSYN VIAL 3.375 GRAMS 3.375 G in NS 100 ML IV + SPIKE MINIBAG* 100 ML IV SCH ×2 (08:01→17:19)
[2021-02-23] MEDS: LOVENOX INJ 30 MG SYR SC SCH ×2 (08:08→21:11)
[2021-02-23] MEDS: PEPCID TAB 40 MG PO SCH ×2 (08:09→21:11)
[2021-02-23] MEDS: ROBITUSSIN DM PO SCH ×4 (08:12→21:11)
[2021-02-23] MEDS: TRICOR TAB 160 MG PO SCH (08:13)
[2021-02-23] MEDS: VITAMIN A PO SCH (08:14)
[2021-02-23] MEDS: ZINC SULFATE PO SCH (08:14)
[2021-02-23] MEDS: ZITHROMAX TAB 250 MG PO SCH (08:14)
[2021-02-23] MEDS: VSL#3 PO SCH (08:14)
[2021-02-23] MEDS: VITAMIN D3 125 mcg (5,000 UNITS) PO SCH (08:16)
[2021-02-23] MEDS: REMDESIVIR 100 MG in NS 250 ML IV 250 ML IV SCH (09:30)
[2021-02-23] MEDS: MUCOMYST 20% 200 MG/ML NEB SCH ×2 (09:30→20:20)
[2021-02-23] MEDS: PULMICORT NEB TX 0.5 MG NEB SCH ×2 (09:30→20:20)
--- NOTE | 2021-02-23 09:33 | PCM.PROG ---
Progress Note Progress Note for Day of Date of Exam: 02/23/21 Subjective Subjective: Patient seen at bedside, no acute events overnight. She remains on HHFNC at FiO2 85% with sats above 90%. Patient does not appear to be in any respiratory distress. Son present at bedside. He reports she is feeling better. She has eating a little bit. She has been afebrile. She still has some chest tightness worse with taking a deep breath or coughing. Labs: WBC 12.4 Hgb 12.4 Na: 148 K: 3.6 Cl 115 BUN/Cr: 19/0.75 Glucose 204 A1C 6.7% CRP 66.30 Trop x 3 (-) CXR (02/22/21): worsening bilateral pneumonia Plan: Wean O2 as tolerated to keep sats > 90%, continue IV antibiotics, R emdesivir and Solumedrol. Will order another set of cardiac enzymes and EKG. Order echo to evaluate cardiac function. Actemra ordered but none in stock right now, will give a dose as soon as it's available. Continue D5 for hypernatremia. Continue SSI for hyperglycemia. Continue vitamin support. Discussed plan with son at bedside, verbalized understanding. Monitor AM labs and imaging. Patient remains in a critical condition. Time spent for clinical assessment, reviewing labs/imaging, physical exam, decision making and documentation greater than 75 mins. Past Medical Family Social History Past Med/Fam/Surg Hx: No changes since H&P Allergies: Allergies No Known Drug Allergies Allergy (Verified 02/20/21 14:09) Review of Systems ROS: No change since H&P Vital Signs and I&O's Vital Signs: Temperature 97.9 F Pulse Rate [Bilateral] 65 Pulse Rate 71 Respiratory Rate 23 Blood Pressure [Left Arm] 127/67 Blood Pressure 125/66 O2 Sat by Pulse Oximetry 95 Intake and Output: Intake & Output 02/20/21 02/21/21 02/22/21 02/23/21 23:59 23:59 23:59 23:59 Intake Total 450 / 450 2514 / 2514 3106 / 3106 622 / 622 Balance 450 / 450 2514 / 2514 3106 / 3106 622 / 622 Physical Exam Oriented: Normal Eyes: Normal Ear: Normal Nose: Normal Throat: Normal Respiratory: Generalized, Wheezes (decreased) and Rhonchi (improved ) Cardiovascular: Normal Auscultation: Bowel Sounds: Normal Tenderness: Normal Skin: Decreased Turgur Musculoskeletal: Normal Psychiatric: Normal Mood Description: Calm and Appropriate Affect: Normal Speech Pattern: Clear and Appropriate Laboratory and Diagnostics Result Diagrams: 02/23/21 04:31 02/23/21 04:31 Labs: 02/20/21 18:30 Blood Blood Culture - Preliminary 02/20/21 18:24 Blood Blood Culture - Preliminary Laboratory WBC 12.4 X10^3/uL (3.6-10.0) H 02/23/21 04:31 RBC 4.10 X10^6/uL (3.5-5.4) 02/23/21 04:31 Hgb 12.4 g/dL (12.0-16.0) 02/23/21 04:31 Hct 36.2 % (36.0-47.0) 02/23/21 04:31 MCV 88.2 fL (80.0-100.0) 02/23/21 04:31 MCH 30.3 pg (27.0-34.0) 02/23/21 04:31 MCHC 34.4 g/dL (33.0-35.0) 02/23/21 04:31 RDW 12.5 % (11.6-16.5) 02/23/21 04:31 Plt Count 409 X10^3/uL (150.0-450.0) 02/23/21 04:31 MPV 8.9 fL (7.4-11.0) 02/23/21 04:31 Neut % (Auto) 85.9 % (42.0-75.0) H 02/23/21 04:31 Lymph % (Auto) 8.8 % (21.0-51.0) L 02/23/21 04:31 [place] % (Auto) 5.0 % (0.0-13.0) 02/23/21 04:31 Eos % (Auto) 0.0 % (0.9-2.9) L 02/23/21 04:31 Baso % (Auto) 0.3 % (0.2-1.0) 02/23/21 04:31 Neut # (Auto) 10.7 x10^3/uL (2.2-4.8) H 02/23/21 04:31 Lymph # (Auto) 1.1 X10^3/uL (1.3-2.9) L 02/23/21 04:31 [place] # (Auto) 0.6 x10^3/uL (0.3-0.8) 02/23/21 04:31 Eos # (Auto) 0.0 x10^3/uL (0.0-0.2) 02/23/21 04:31 Baso # (Auto) 0.0 X10^3/uL (0.0-0.1) 02/23/21 04:31 Absolute Nucleated RBC 0.1 /100WBC 02/23/21 04:31 D-Dimer 0.91 ug/ml (0.0-0.57) H* 02/20/21 20:00 Sample Site Lra 02/20/21 15:23 ABG pH 7.510 (7.35-7.45) H 02/20/21 15:23 ABG pCO2 32.0 mmHg (35.0-45.0) L 02/20/21 15:23 ABG pO2 51.0 mmHg (80.0-100.0) L 02/20/21 15:23 ABG HCO3 25.5 mmol/L (22-26) 02/20/21 15:23 ABG O2 Saturation 89.0 % (90-100) L 02/20/21 15:23 ABG Base Excess 2.9 mmol/L (-2.0-2.0) H 02/20/21 15:23 Sky Test Pos 02/20/21 15:23 A-a Gradient 59.0 mmHg 02/20/21 15:23 FiO2 21.0 02/20/21 15:23 Blood Gas Comments Pt judah well eb 02/20/21 15:23 Sodium 148 mmol/L (136-145) H 02/23/21 04:31 Corrected Sodium 150 mmol/L (136-145) H 02/23/21 04:31 Potassium 3.6 mmol/L (3.5-5.1) 02/23/21 04:31 Chloride 114 mmol/L (98-107) H 02/23/21 04:31 Carbon Dioxide 25.6 mmol/L (21-32) 02/23/21 04:31 BUN 19 mg/dL (7-18) H 02/23/21 04:31 Creatinine 0.75 mg/dL (0.55-1.02) 02/23/21 04:31 Est GFR (MDRD) Af Amer > 60 (>60) 02/23/21 04:31 Est GFR (MDRD) Non-Af > 60 (>60) 02/23/21 04:31 Glucose 204 mg/dL (65-99) H 02/23/21 04:31 Hemoglobin A1c 6.7 % 02/21/21 04:16 Calcium 7.9 mg/dL (8.5-10.1) L 02/23/21 04:31 Corrected Calcium 9.4 mg/dL (8.5-10.1) 02/23/21 04:31 Total Bilirubin 0.30 mg/dL (0.2-1.0) 02/23/21 04:31 AST 42 Units/L (15-37) H 02/23/21 04:31 ALT 56 Units/L (12-78) 02/23/21 04:31 Alkaline Phosphatase 104 Units/L (46-116) 02/23/21 04:31 Creatine Kinase 69 Units/L (26-192) 02/21/21 04:16 Creatine Kinase 70 Units/L (26-192) 02/21/21 04:16 CK-MB (CK-2) 1.3 ng/mL (0-4.0) 02/21/21 04:16 CK-MB (CK-2) < 1.0 ng/mL (0-4.0) 02/21/21 04:16 CK/CKMB % Calc 1.5 % (<4) 02/21/21 04:16 CK/CKMB % Calc 1.9 % (<4) 02/21/21 04:16 Troponin I 0.02 ng/mL (0-1.5) 02/21/21 04:16 Troponin I < 0.02 ng/mL (0-1.5) 02/21/21 04:16 C-Reactive Protein 33.40 mg/L (0-3.0) H 02/23/21 04:31 B-Natriuretic Peptide 9.7 pg/mL (0-79) 02/20/21 14:54 Total Protein 6.1 g/dL (6.4-8.2) L 02/23/21 04:31 Albumin 2.1 g/dL (3.4-5.0) L 02/23/21 04:31 Globulin 4.0 g/dL (2.5-4.5) 02/23/21 04:31 Albumin/Globulin Ratio 0.5 Ratio (1.1-2.1) L 02/23/21 04:31 Amylase 65 Units/L (25-115) 02/20/21 14:54 Lipase 189 Units/L (73-393) 02/20/21 14:54 SARS-CoV-2 (PCR) Positive (NEGATIVE) A 02/20/21 15:05 Influenza Type A (PCR) Negative (NEGATIVE) 02/20/21 15:05 Influenza Type B (PCR) Negative (NEGATIVE) 02/20/21 15:05 RSV (PCR) Negative (NEGATIVE) 02/20/21 15:05 S. pyogenes (TEM-PCR) Not detected (NOT DETECT) 02/20/21 15:05 Plan (1) Pneumonia due to COVID-19 virus: Status: Acute (2) Acute respiratory failure with hypoxia: Status: Acute (3) Type 2 diabetes mellitus: Status: Acute Qualifiers: Diabetes mellitus complication status: without complication Diabetes mellitus mcfp insulin use: without mcfp use Qualified Code(s): E11.9 - Type 2 diabetes mellitus without complications
[2021-02-23 10:04] LABS: CKMB % 3.4 % (<4); CREATINE KINASE 35 Units/L (26-192); CREATINE KINASE MB 1.2 ng/mL (0-4.0); TROPONIN I < 0.02 ng/mL (0-1.5)
[2021-02-23] MEDS ORDERED: LASIX IVP ONE (15:52)
[2021-02-24] MEDS: ZOSYN VIAL 3.375 GRAMS 3.375 G in NS 100 ML IV + SPIKE MINIBAG* 100 ML IV SCH ×3 (00:54→17:25)
[2021-02-24 05:08] LABS: BASOPHILS % (AUTO) 0.3 % (0.2-1.0); HEMATOCRIT 35.7 % (36.0-47.0); HEMOGLOBIN 12.7 g/dL (12.0-16.0); LYMPHOCYTES # (AUTO) 1.1 X10^3/uL (1.3-2.9); LYMPHOCYTES % (AUTO) 12.9 % (21.0-51.0); MEAN CORPUSCULAR HEMOGLOBIN 30.3 pg (27.0-34.0); MEAN CORPUSCULAR HGB CONC 35.6 g/dL (33.0-35.0); MEAN CORPUSCULAR VOLUME 85.1 fL (80.0-100.0); MONOCYTES # (AUTO) 0.6 x10^3/uL (0.3-0.8); MONOCYTES % (AUTO) 7.4 % (0.0-13.0); NEUTROPHILS # (AUTO) 6.9 x10^3/uL (2.2-4.8); NEUTROPHILS % (AUTO) 79.4 % (42.0-75.0); PLATELET COUNT 408 X10^3/uL (150.0-450.0); RED CELL DISTRIBUTION WIDTH 12.5 % (11.6-16.5); WHITE BLOOD COUNT 8.7 X10^3/uL (3.6-10.0)
[2021-02-24] MEDS: D5W 1000 ML IV 1,000 ML IV SCH ×2 (05:30→13:19)
[2021-02-24 05:34] LABS: ALANINE AMINOTRANSFERASE 57 Units/L (12-78); ALBUMIN 2.2 g/dL (3.4-5.0); ALKALINE PHOSPHATASE 104 Units/L (46-116); ASPARTATE AMINO TRANSFERASE 36 Units/L (15-37); BLOOD UREA NITROGEN 18 mg/dL (7-18); CALCIUM 7.6 mg/dL (8.5-10.1); CARBON DIOXIDE 27.4 mmol/L (21-32); CHLORIDE 108 mmol/L (98-107); COR NA(FOR HYPERGLY) 149 mmol/L (136-145); CREATININE 0.77 mg/dL (0.55-1.02); SODIUM 144 mmol/L (136-145); eGFR NON BLACK RACES > 60 (>60)
[2021-02-24] MEDS: SOLU-Medrol 40 MG VIAL IVP SCH ×3 (05:34→21:23)
[2021-02-24] MEDS: ASCORBIC ACID INJ MULTI-DOSE VIAL 1,500 MG in NS 50 ML IV 50 ML IV SCH ×4 (07:29→21:22)
[2021-02-24] MEDS: HumuLIN R SC PRN ×2 (07:30→21:24)
[2021-02-24] MEDS: PULMICORT NEB TX 0.5 MG NEB SCH ×2 (09:11→20:51)
[2021-02-24] MEDS: MUCOMYST 20% 200 MG/ML NEB SCH ×2 (09:11→20:51)
--- NOTE | 2021-02-24 09:26 | RAD ---
HISTORYCOVID PNEUMONIA Relevant Clinical InformationSTUDYCHEST, 1 VIEWCOMPARISONPortable chest February 22, 2021.FINDINGSThe trachea is midline. The cardiac silhouette is unremarkable. There is been improvement in the density of the infiltrates in the left lower lung field and to a lesser degree the right lower lung field compared to February 22, 2021. No pneumothorax or effusion is observed.. The bony thorax is unremarkable.IMPRESSIONImprovement in the density of the infiltrates in the left lower lung field and to a lesser extent improvement in the infiltrate in the right lower lung. Infiltrate in the right upper lobe persists without change.Electronically signed by: MAGGIE MCKEON (Feb 24, 2021 09:23:03)
[2021-02-24] MEDS: VSL#3 PO SCH (10:00)
[2021-02-24] MEDS: ZINC SULFATE PO SCH (10:00)
[2021-02-24] MEDS: ROBITUSSIN DM PO SCH ×4 (10:00→21:23)
[2021-02-24] MEDS: VITAMIN A PO SCH (10:00)
[2021-02-24] MEDS: ZITHROMAX TAB 250 MG PO SCH (10:00)
[2021-02-24] MEDS: LOVENOX INJ 30 MG SYR SC SCH ×2 (10:00→21:23)
[2021-02-24] MEDS: TRICOR TAB 160 MG PO SCH (10:00)
[2021-02-24] MEDS: PEPCID TAB 40 MG PO SCH ×2 (10:00→21:24)
[2021-02-24] MEDS: K-DUR TAB 20 MEQ PO SCH ×2 (10:00→21:23)
[2021-02-24] MEDS: VITAMIN D3 125 mcg (5,000 UNITS) PO SCH (10:00)
--- NOTE | 2021-02-24 11:01 | PCM.PROG ---
Progress Note Progress Note for Day of Date of Exam: 02/24/21 Subjective Subjective: Patient seen at bedside, no acute events overnight. She remains on HHFNC at FiO2 85% with sats above 90%. Patient does not appear to be in any respiratory distress. Son present at bedside. She still has some chest tightness on the right side, worse with coughing. Patient's cardiac enzymes were negative yesterday. Patient does have b/l infiltrates on both lungs. She did work with PT yesterday. She is eating. ECHO did show increased right sided pressure and pulm HTN, she was given one dose of lasix 20 mg IV. Labs: WBC 8.7 Hgb 12.7 Na: 144 K: 3.1 Cl 108 BUN/Cr: 18/0.77 Glucose 312 A1C 6.7% CRP 66.30 Trop x 4 (-) ECHO (02/23/21): EF 56%, normal global wall motion, mild PH, dilated IVC. Plan: CXR pending. Wean O2 as tolerated to keep sats > 90%, continue IV antibiotics, Remdesivir and Solumedrol. Will give another dose of IV lasix, Actemra ordered but none in stock right now, will give a dose as soon as it's available. Decrease D5 to 50cc/hr for hypernatremia. Continue SSI for hyperglycemia. Replace KCl 20 meQ BID. Continue vitamin support. Discussed plan with son at bedside, verbalized understanding. PT/OT as tolerated, advised to sit on the side of the bed for meals. Monitor AM labs and imaging. Patient remains in a critical condition. Time spent for clinical assessment, reviewing labs/imaging, physical exam, decision making and documentation greater than 75 mins. Past Medical Family Social History Past Med/Fam/Surg Hx: No changes since H&P Allergies: Allergies No Known Drug Allergies Allergy (Verified 02/20/21 14:09) Review of Systems ROS: No change since H&P Vital Signs and I&O's Vital Signs: Temperature 97.5 F Pulse Rate [Bilateral] 56 Pulse Rate 56 Respiratory Rate 19 Blood Pressure [Left Arm] 131/65 Blood Pressure 125/66 O2 Sat by Pulse Oximetry 95 Intake and Output: Intake & Output 02/21/21 02/22/21 02/23/21 02/24/21 23:59 23:59 23:59 23:59 Intake Total 2514 / 2514 3106 / 6 2515 / 6 660 / 660 Balance 2513 / 2513 3105 / 3106 2515 / 2515 660 / 660 Physical Exam Oriented: Normal Eyes: Normal Ear: Normal Nose: Normal Throat: Normal Respiratory: Generalized, Wheezes (decreased) and Rhonchi (improved ) Cardiovascular: Normal Auscultation: Bowel Sounds: Normal Tenderness: Normal Skin: Decreased Turgur Musculoskeletal: Normal Psychiatric: Normal Mood Description: Calm and Appropriate Affect: Normal Speech Pattern: Clear and Appropriate Laboratory and Diagnostics Result Diagrams: 02/24/21 04:05 02/24/21 04:05 Labs: 02/20/21 18:30 Blood Blood Culture - Preliminary 02/20/21 18:24 Blood Blood Culture - Preliminary Laboratory WBC 8.7 X10^3/uL (3.6-10.0) 02/24/21 04:05 RBC 4.20 X10^6/uL (3.5-5.4) 02/24/21 04:05 Hgb 12.7 g/dL (12.0-16.0) 02/24/21 04:05 Hct 35.7 % (36.0-47.0) L 02/24/21 04:05 MCV 85.1 fL (80.0-100.0) 02/24/21 04:05 MCH 30.3 pg (27.0-34.0) 02/24/21 04:05 MCHC 35.6 g/dL (33.0-35.0) H 02/24/21 04:05 RDW 12.5 % (11.6-16.5) 02/24/21 04:05 Plt Count 408 X10^3/uL (150.0-450.0) 02/24/21 04:05 MPV 9.0 fL (7.4-11.0) 02/24/21 04:05 Neut % (Auto) 79.4 % (42.0-75.0) H 02/24/21 04:05 Lymph % (Auto) 12.9 % (21.0-51.0) L 02/24/21 04:05 [place] % (Auto) 7.4 % (0.0-13.0) 02/24/21 04:05 Eos % (Auto) 0.0 % (0.9-2.9) L 02/24/21 04:05 Baso % (Auto) 0.3 % (0.2-1.0) 02/24/21 04:05 Neut # (Auto) 6.9 x10^3/uL (2.2-4.8) H 02/24/21 04:05 Lymph # (Auto) 1.1 X10^3/uL (1.3-2.9) L 02/24/21 04:05 [place] # (Auto) 0.6 x10^3/uL (0.3-0.8) 02/24/21 04:05 Eos # (Auto) 0.0 x10^3/uL (0.0-0.2) 02/24/21 04:05 Baso # (Auto) 0.0 X10^3/uL (0.0-0.1) 02/24/21 04:05 Absolute Nucleated RBC 0.0 /100WBC 02/24/21 04:05 D-Dimer 0.91 ug/ml (0.0-0.57) H* 02/20/21 20:00 Sample Site Lra 02/20/21 15:23 ABG pH 7.510 (7.35-7.45) H 02/20/21 15:23 ABG pCO2 32.0 mmHg (35.0-45.0) L 02/20/21 15:23 ABG pO2 51.0 mmHg (80.0-100.0) L 02/20/21 15:23 ABG HCO3 25.5 mmol/L (22-26) 02/20/21 15:23 ABG O2 Saturation 89.0 % (90-100) L 02/20/21 15:23 ABG Base Excess 2.9 mmol/L (-2.0-2.0) H 02/20/21 15:23 Sky Test Pos 02/20/21 15:23 A-a Gradient 59.0 mmHg 02/20/21 15:23 FiO2 21.0 02/20/21 15:23 Blood Gas Comments Pt judah well eb 02/20/21 15:23 Sodium 144 mmol/L (136-145) 02/24/21 04:05 Corrected Sodium 149 mmol/L (136-145) H 02/24/21 04:05 Potassium 3.1 mmol/L (3.5-5.1) L 02/24/21 04:05 Chloride 108 mmol/L (98-107) H 02/24/21 04:05 Carbon Dioxide 27.4 mmol/L (21-32) 02/24/21 04:05 BUN 18 mg/dL (7-18) 02/24/21 04:05 Creatinine 0.77 mg/dL (0.55-1.02) 02/24/21 04:05 Est GFR (MDRD) Af Amer > 60 (>60) 02/24/21 04:05 Est GFR (MDRD) Non-Af > 60 (>60) 02/24/21 04:05 Glucose 312 mg/dL (65-99) H 02/24/21 04:05 Hemoglobin A1c 6.7 % 02/21/21 04:16 Calcium 7.6 mg/dL (8.5-10.1) L 02/24/21 04:05 Corrected Calcium 9.0 mg/dL (8.5-10.1) 02/24/21 04:05 Total Bilirubin 0.40 mg/dL (0.2-1.0) 02/24/21 04:05 AST 36 Units/L (15-37) 02/24/21 04:05 ALT 57 Units/L (12-78) 02/24/21 04:05 Alkaline Phosphatase 104 Units/L (46-116) 02/24/21 04:05 Creatine Kinase 35 Units/L (26-192) 02/23/21 09:17 CK-MB (CK-2) 1.2 ng/mL (0-4.0) 02/23/21 09:17 CK/CKMB % Calc 3.4 % (<4) 02/23/21 09:17 Troponin I < 0.02 ng/mL (0-1.5) 02/23/21 09:17 C-Reactive Protein 33.40 mg/L (0-3.0) H 02/23/21 04:31 B-Natriuretic Peptide 9.7 pg/mL (0-79) 02/20/21 14:54 Total Protein 6.0 g/dL (6.4-8.2) L 02/24/21 04:05 Albumin 2.2 g/dL (3.4-5.0) L 02/24/21 04:05 Globulin 3.8 g/dL (2.5-4.5) 02/24/21 04:05 Albumin/Globulin Ratio 0.6 Ratio (1.1-2.1) L 02/24/21 04:05 Amylase 65 Units/L (25-115) 02/20/21 14:54 Lipase 189 Units/L (73-393) 02/20/21 14:54 SARS-CoV-2 (PCR) Positive (NEGATIVE) A 02/20/21 15:05 Influenza Type A (PCR) Negative (NEGATIVE) 02/20/21 15:05 Influenza Type B (PCR) Negative (NEGATIVE) 02/20/21 15:05 RSV (PCR) Negative (NEGATIVE) 02/20/21 15:05 S. pyogenes (TEM-PCR) Not detected (NOT DETECT) 02/20/21 15:05 Plan (1) Pneumonia due to COVID-19 virus: Status: Acute (2) Acute respiratory failure with hypoxia: Status: Acute (3) Type 2 diabetes mellitus: Status: Acute Qualifiers: Diabetes mellitus complication status: without complication Diabetes mellitus group home insulin use: without group home use Qualified Code(s): E11.9 - Type 2 diabetes mellitus without complications (4) Hypokalemia: Status: Acute (5) Hypernatremia: Status: Acute
[2021-02-24] MEDS ORDERED: LASIX IVP ONE (11:06)
[2021-02-24] MEDS ORDERED: LASIX IVP NR (14:00)
[2021-02-24 17:00] LABS: BILIRUBIN,URINE NEGATIVE (NEGATIVE); BLOOD/HEMOGLOBIN,URINE NEGATIVE (NEGATIVE); GLUCOSE, URINE 4+ (NEGATIVE); KETONES,URINE NEGATIVE (NEGATIVE); LEUKOCYTE ESTERASE ,URINE NEGATIVE (NEGATIVE); NITRITES,URINE NEGATIVE (NEGATIVE); PROTEIN,URINE NEGATIVE (NEGATIVE); UROBILINOGEN,URINE NORMAL (NORMAL)
[2021-02-24 17:10] LABS: APPEARANCE,URINE CLEAR (CLEAR); COLOR,URINE YELLOW (YELLOW)
[2021-02-25] MEDS: ZOSYN VIAL 3.375 GRAMS 3.375 G in NS 100 ML IV + SPIKE MINIBAG* 100 ML IV SCH ×3 (00:36→17:51)
[2021-02-25] MEDS: D5W 1000 ML IV 1,000 ML IV SCH (01:00)
[2021-02-25] MEDS: ASCORBIC ACID INJ MULTI-DOSE VIAL 1,500 MG in NS 50 ML IV 50 ML IV SCH ×4 (03:41→20:52)
[2021-02-25 05:19] LABS: BASOPHILS % (AUTO) 0.4 % (0.2-1.0); HEMATOCRIT 38.5 % (36.0-47.0); HEMOGLOBIN 13.5 g/dL (12.0-16.0); LYMPHOCYTES # (AUTO) 1.2 X10^3/uL (1.3-2.9); LYMPHOCYTES % (AUTO) 14.1 % (21.0-51.0); MEAN CORPUSCULAR HEMOGLOBIN 29.7 pg (27.0-34.0); MEAN CORPUSCULAR HGB CONC 35.2 g/dL (33.0-35.0); MEAN CORPUSCULAR VOLUME 84.5 fL (80.0-100.0); MONOCYTES # (AUTO) 0.5 x10^3/uL (0.3-0.8); NEUTROPHILS # (AUTO) 6.9 x10^3/uL (2.2-4.8); NEUTROPHILS % (AUTO) 79.5 % (42.0-75.0); PLATELET COUNT 461 X10^3/uL (150.0-450.0); RED BLOOD COUNT 4.55 X10^6/uL (3.5-5.4); RED CELL DISTRIBUTION WIDTH 12.1 % (11.6-16.5); WHITE BLOOD COUNT 8.7 X10^3/uL (3.6-10.0)
[2021-02-25 05:28] LABS: ALANINE AMINOTRANSFERASE 52 Units/L (12-78); ALBUMIN 2.3 g/dL (3.4-5.0); ALKALINE PHOSPHATASE 96 Units/L (46-116); ASPARTATE AMINO TRANSFERASE 32 Units/L (15-37); BLOOD UREA NITROGEN 12 mg/dL (7-18); CALCIUM 7.8 mg/dL (8.5-10.1); CARBON DIOXIDE 29.8 mmol/L (21-32); CHLORIDE 99 mmol/L (98-107); COR CA(FOR HYPOALB) 9.2 mg/dL (8.5-10.1); COR NA(FOR HYPERGLY) 141 mmol/L (136-145); CREATININE 0.78 mg/dL (0.55-1.02); SODIUM 136 mmol/L (136-145); TOTAL PROTEIN 6.3 g/dL (6.4-8.2); eGFR NON BLACK RACES > 60 (>60)
[2021-02-25] MEDS: SOLU-Medrol 40 MG VIAL IVP SCH (06:41)
[2021-02-25] MEDS: HumuLIN R SC PRN ×3 (07:16→17:45)
[2021-02-25] MEDS ORDERED: LASIX IVP ONE (08:46)
[2021-02-25] MEDS: PULMICORT NEB TX 0.5 MG NEB SCH ×2 (09:11→22:05)
[2021-02-25] MEDS: MUCOMYST 20% 200 MG/ML NEB SCH ×2 (09:11→22:05)
--- NOTE | 2021-02-25 09:37 | PCM.PROG ---
Progress Note Progress Note for Day of Date of Exam: 02/25/21 Subjective Subjective: Patient seen at bedside, no acute events overnight. Son states patient feels better, that chest pressure has resolved. Patient reports having more swelling in both hands. She has been weaned down to HHFNC at FiO2 60% with sats above 90%. Patient does not appear to be in any respiratory distress. She did work with PT yesterday. She is eating well. She did sit on the side of the bed and tolerated that fine. Labs: WBC 8.7 Hgb 13.5 Na: 136 K: 3.3 Cl 99 BUN/Cr: 12/0.78 Glucose 321 A1C 6.7% CRP 66.30 Trop x 4 (-) ECHO (02/23/21): EF 56%, normal global wall motion, mild PH, dilated IVC. CXR (02/24/21): improvement in infiltrates in the right and left lower lobes. Plan: Wean O2 as tolerated to keep sats > 90%, continue IV antibiotics, Remdesivir and taper Solumedrol. Will give another dose of IV lasix, Actemra ordered but none in stock right now, will give a dose as soon as it's available. DC IVF. Continue SSI for hyperglycemia. Replace KCl 20 meQ BID. Continue vitamin support. Discussed plan with son at bedside, verbalized understanding. PT/OT as tolerated, advised to sit on the side of the bed for meals. Monitor AM labs and imaging. Time spent for clinical assessment, reviewing labs/imaging, physical exam, decision making and documentation greater than 75 mins. Past Medical Family Social History Past Med/Fam/Surg Hx: No changes since H&P Allergies: Allergies No Known Drug Allergies Allergy (Verified 02/20/21 14:09) Review of Systems ROS: No change since H&P Vital Signs and I&O's Vital Signs: Temperature 98.2 F Pulse Rate [Bilateral] 63 Pulse Rate 58 Respiratory Rate 18 Blood Pressure [Left Arm] 145/89 Blood Pressure 125/66 O2 Sat by Pulse Oximetry 97 Intake and Output: Intake & Output 02/22/21 02/23/21 02/24/21 02/25/21 23:59 23:59 23:59 23:59 Intake Total 3106 / 3106 2516 / 2516 4540 / 4540 100 / 100 Balance 3106 / 3106 2516 / 2516 4540 / 4540 100 / 100 Physical Exam Oriented: Normal Eyes: Normal Ear: Normal Nose: Normal Throat: Normal Respiratory: Generalized, Diminished and Rhonchi (improved ) Cardiovascular: Normal and Edema (b/l hands ) Auscultation: Bowel Sounds: Normal Tenderness: Normal Skin: Normal Musculoskeletal: Normal Psychiatric: Normal Mood Description: Calm and Appropriate Affect: Normal Speech Pattern: Clear and Appropriate Laboratory and Diagnostics Result Diagrams: 02/25/21 04:18 02/25/21 04:18 Labs: 02/20/21 18:30 Blood Blood Culture - Preliminary 02/20/21 18:24 Blood Blood Culture - Preliminary Laboratory WBC 8.7 X10^3/uL (3.6-10.0) 02/25/21 04:18 RBC 4.55 X10^6/uL (3.5-5.4) 02/25/21 04:18 Hgb 13.5 g/dL (12.0-16.0) 02/25/21 04:18 Hct 38.5 % (36.0-47.0) 02/25/21 04:18 MCV 84.5 fL (80.0-100.0) 02/25/21 04:18 MCH 29.7 pg (27.0-34.0) 02/25/21 04:18 MCHC 35.2 g/dL (33.0-35.0) H 02/25/21 04:18 RDW 12.1 % (11.6-16.5) 02/25/21 04:18 Plt Count 461 X10^3/uL (150.0-450.0) H 02/25/21 04:18 MPV 9.0 fL (7.4-11.0) 02/25/21 04:18 Neut % (Auto) 79.5 % (42.0-75.0) H 02/25/21 04:18 Lymph % (Auto) 14.1 % (21.0-51.0) L 02/25/21 04:18 [place] % (Auto) 6.0 % (0.0-13.0) 02/25/21 04:18 Eos % (Auto) 0.0 % (0.9-2.9) L 02/25/21 04:18 Baso % (Auto) 0.4 % (0.2-1.0) 02/25/21 04:18 Neut # (Auto) 6.9 x10^3/uL (2.2-4.8) H 02/25/21 04:18 Lymph # (Auto) 1.2 X10^3/uL (1.3-2.9) L 02/25/21 04:18 [place] # (Auto) 0.5 x10^3/uL (0.3-0.8) 02/25/21 04:18 Eos # (Auto) 0.0 x10^3/uL (0.0-0.2) 02/25/21 04:18 Baso # (Auto) 0.0 X10^3/uL (0.0-0.1) 02/25/21 04:18 Absolute Nucleated RBC 0.0 /100WBC 02/25/21 04:18 D-Dimer 0.91 ug/ml (0.0-0.57) H* 02/20/21 20:00 Sample Site Lra 02/20/21 15:23 ABG pH 7.510 (7.35-7.45) H 02/20/21 15:23 ABG pCO2 32.0 mmHg (35.0-45.0) L 02/20/21 15:23 ABG pO2 51.0 mmHg (80.0-100.0) L 02/20/21 15:23 ABG HCO3 25.5 mmol/L (22-26) 02/20/21 15:23 ABG O2 Saturation 89.0 % (90-100) L 02/20/21 15:23 ABG Base Excess 2.9 mmol/L (-2.0-2.0) H 02/20/21 15:23 Sky Test Pos 02/20/21 15:23 A-a Gradient 59.0 mmHg 02/20/21 15:23 FiO2 21.0 02/20/21 15:23 Blood Gas Comments Pt judah well eb 02/20/21 15:23 Sodium 136 mmol/L (136-145) 02/25/21 04:18 Corrected Sodium 141 mmol/L (136-145) 02/25/21 04:18 Potassium 3.3 mmol/L (3.5-5.1) L 02/25/21 04:18 Chloride 99 mmol/L (98-107) 02/25/21 04:18 Carbon Dioxide 29.8 mmol/L (21-32) 02/25/21 04:18 BUN 12 mg/dL (7-18) 02/25/21 04:18 Creatinine 0.78 mg/dL (0.55-1.02) 02/25/21 04:18 Est GFR (MDRD) Af Amer > 60 (>60) 02/25/21 04:18 Est GFR (MDRD) Non-Af > 60 (>60) 02/25/21 04:18 Glucose 321 mg/dL (65-99) H 02/25/21 04:18 Hemoglobin A1c 6.7 % 02/21/21 04:16 Calcium 7.8 mg/dL (8.5-10.1) L 02/25/21 04:18 Corrected Calcium 9.2 mg/dL (8.5-10.1) 02/25/21 04:18 Total Bilirubin 0.50 mg/dL (0.2-1.0) 02/25/21 04:18 AST 32 Units/L (15-37) 02/25/21 04:18 ALT 52 Units/L (12-78) 02/25/21 04:18 Alkaline Phosphatase 96 Units/L (46-116) 02/25/21 04:18 Creatine Kinase 35 Units/L (26-192) 02/23/21 09:17 CK-MB (CK-2) 1.2 ng/mL (0-4.0) 02/23/21 09:17 CK/CKMB % Calc 3.4 % (<4) 02/23/21 09:17 Troponin I < 0.02 ng/mL (0-1.5) 02/23/21 09:17 C-Reactive Protein 13.60 mg/L (0-3.0) H 02/25/21 04:18 B-Natriuretic Peptide 9.7 pg/mL (0-79) 02/20/21 14:54 Total Protein 6.3 g/dL (6.4-8.2) L 02/25/21 04:18 Albumin 2.3 g/dL (3.4-5.0) L 02/25/21 04:18 Globulin 4.0 g/dL (2.5-4.5) 02/25/21 04:18 Albumin/Globulin Ratio 0.6 Ratio (1.1-2.1) L 02/25/21 04:18 Amylase 65 Units/L (25-115) 02/20/21 14:54 Lipase 189 Units/L (73-393) 02/20/21 14:54 Specimen Type Clean catch urine 02/24/21 16:35 Urine Color Yellow (YELLOW) 02/24/21 16:35 Urine Appearance Clear (CLEAR) 02/24/21 16:35 Urine pH 7.0 (5.0 - 8.0) 02/24/21 16:35 Ur Specific [place] 1.015 (1.000-1.030) 02/24/21 16:35 Urine Protein Negative (NEGATIVE) 02/24/21 16:35 Urine Glucose (UA) 4+ (NEGATIVE) 02/24/21 16:35 Urine Ketones Negative (NEGATIVE) 02/24/21 16:35 Urine Occult Blood Negative (NEGATIVE) 02/24/21 16:35 Urine Nitrite Negative (NEGATIVE) 02/24/21 16:35 Urine Bilirubin Negative (NEGATIVE) 02/24/21 16:35 Urine Urobilinogen Normal (NORMAL) 02/24/21 16:35 Ur Leukocyte Esterase Negative (NEGATIVE) 02/24/21 16:35 SARS-CoV-2 (PCR) Positive (NEGATIVE) A 02/20/21 15:05 Influenza Type A (PCR) Negative (NEGATIVE) 02/20/21 15:05 Influenza Type B (PCR) Negative (NEGATIVE) 02/20/21 15:05 RSV (PCR) Negative (NEGATIVE) 02/20/21 15:05 S. pyogenes (TEM-PCR) Not detected (NOT DETECT) 02/20/21 15:05 Plan (1) Pneumonia due to COVID-19 virus: Status: Acute (2) Acute respiratory failure with hypoxia: Status: Acute (3) Type 2 diabetes mellitus: Status: Acute Qualifiers: Diabetes mellitus complication status: without complication Diabetes mellitus senior care insulin use: without senior care use Qualified Code(s): E11.9 - Type 2 diabetes mellitus without complications (4) Hypokalemia: Status: Acute (5) Hypernatremia: Status: Acute
[2021-02-25] MEDS: K-DUR TAB 20 MEQ PO SCH ×2 (09:47→20:53)
[2021-02-25] MEDS: ROBITUSSIN DM PO SCH ×4 (09:49→20:58)
[2021-02-25] MEDS: PEPCID TAB 40 MG PO SCH ×2 (09:49→20:55)
[2021-02-25] MEDS: TRICOR TAB 160 MG PO SCH (09:49)
[2021-02-25] MEDS: VSL#3 PO SCH (09:50)
[2021-02-25] MEDS: VITAMIN D3 125 mcg (5,000 UNITS) PO SCH (09:50)
[2021-02-25] MEDS: ZINC SULFATE PO SCH (09:50)
[2021-02-25] MEDS: ZITHROMAX TAB 250 MG PO SCH (09:50)
[2021-02-25] MEDS: VITAMIN A PO SCH (09:51)
[2021-02-25] MEDS ORDERED: LASIX ONE (11:52)
[2021-02-25] MEDS: LOVENOX INJ 30 MG SYR SC SCH ×2 (11:56→20:54)
[2021-02-25] MEDS ORDERED: SOLU-Medrol 40 MG VIAL IVP SCH (21:00)
[2021-02-26] MEDS: ZOSYN VIAL 3.375 GRAMS 3.375 G in NS 100 ML IV + SPIKE MINIBAG* 100 ML IV SCH ×2 (00:30→08:44)
[2021-02-26] MEDS: ASCORBIC ACID INJ MULTI-DOSE VIAL 1,500 MG in NS 50 ML IV 50 ML IV SCH ×2 (03:48→09:23)
[2021-02-26 06:45] LABS: BASOPHILS % (AUTO) 0.3 % (0.2-1.0); EOSINOPHILS % (AUTO) 0.1 % (0.9-2.9); HEMATOCRIT 40.9 % (36.0-47.0); HEMOGLOBIN 14.3 g/dL (12.0-16.0); LYMPHOCYTES # (AUTO) 0.9 X10^3/uL (1.3-2.9); MEAN CORPUSCULAR HEMOGLOBIN 29.5 pg (27.0-34.0); MEAN CORPUSCULAR HGB CONC 34.9 g/dL (33.0-35.0); MEAN CORPUSCULAR VOLUME 84.5 fL (80.0-100.0); MEAN PLATELET VOLUME 9.2 fL (7.4-11.0); MONOCYTES # (AUTO) 0.3 x10^3/uL (0.3-0.8); MONOCYTES % (AUTO) 5.5 % (0.0-13.0); NEUTROPHILS # (AUTO) 4.9 x10^3/uL (2.2-4.8); NEUTROPHILS % (AUTO) 79.1 % (42.0-75.0); PLATELET COUNT 450 X10^3/uL (150.0-450.0); RED BLOOD COUNT 4.84 X10^6/uL (3.5-5.4); RED CELL DISTRIBUTION WIDTH 12.5 % (11.6-16.5); WHITE BLOOD COUNT 6.1 X10^3/uL (3.6-10.0)
[2021-02-26 06:51] LABS: ALANINE AMINOTRANSFERASE 53 Units/L (12-78); ALBUMIN 2.5 g/dL (3.4-5.0); ALKALINE PHOSPHATASE 93 Units/L (46-116); ASPARTATE AMINO TRANSFERASE 38 Units/L (15-37); BLOOD UREA NITROGEN 21 mg/dL (7-18); CARBON DIOXIDE 30.2 mmol/L (21-32); CHLORIDE 101 mmol/L (98-107); COR CA(FOR HYPOALB) 9.2 mg/dL (8.5-10.1); COR NA(FOR HYPERGLY) 142 mmol/L (136-145); CREATININE 0.74 mg/dL (0.55-1.02); SODIUM 138 mmol/L (136-145); TOTAL PROTEIN 6.5 g/dL (6.4-8.2); eGFR NON BLACK RACES > 60 (>60)
[2021-02-26] MEDS: VITAMIN D3 125 mcg (5,000 UNITS) PO SCH (09:18)
[2021-02-26] MEDS: PEPCID TAB 40 MG PO SCH (09:19)
[2021-02-26] MEDS: ROBITUSSIN DM PO SCH ×2 (09:19→13:52)
[2021-02-26] MEDS: K-DUR TAB 20 MEQ PO SCH (09:19)
[2021-02-26] MEDS: ZINC SULFATE PO SCH (09:19)
[2021-02-26] MEDS: VSL#3 PO SCH (09:20)
[2021-02-26] MEDS: TRICOR TAB 160 MG PO SCH (09:20)
[2021-02-26] MEDS: LOVENOX INJ 30 MG SYR SC SCH (09:21)
[2021-02-26] MEDS: ZITHROMAX TAB 250 MG PO SCH (09:21)
[2021-02-26] MEDS: VITAMIN A PO SCH (09:23)
[2021-02-26] MEDS: PULMICORT NEB TX 0.5 MG NEB SCH (09:30)
[2021-02-26] MEDS ORDERED: ACTOS PO SCH (09:45)
[2021-02-26] MEDS ORDERED: GLUCOPHAGE XR 24-HR PO SCH (10:00)
[2021-02-26] MEDS ORDERED: DECADRON TAB PO SCH (10:00)
[2021-02-26] MEDS: MUCOMYST 20% 200 MG/ML NEB SCH (11:10)
[2021-02-26] MEDS: HumuLIN R SC PRN (13:49)
[2021-02-26 13:56] VITALS: BP 125/82
[2021-02-26] MEDS ORDERED: LOVENOX INJ 60 MG SYR SC SCH (21:00)
== END 2021-02-26 15:45 | disposition home or self-care (01) | DRG 177 ==
LOC: ER 14:02 → OBS 16:38 → ICU 02-21 15:04 → MED/SURG 02-25 14:47
PROVIDERS: ADMIT Internal Medicine; ATTEND Internal Medicine
DX: U07.1 COVID-19; J12.82 Pneumonia due to coronavirus disease 2019; E87.0 Hyperosmolality and hypernatremia; E87.6 Hypokalemia; R07.89 Other chest pain; E11.65 Type 2 diabetes mellitus with hyperglycemia; M79.89 Other specified soft tissue disorders; R26.2 Difficulty in walking, not elsewhere classified; J96.01 Acute respiratory failure with hypoxia